=== PATIENT | male | born 1985 | race Two or more races ===

== ENCOUNTER 2023-10-19 16:01 | Emergency (ER) | payer SELFPAY ==
[2023-10-19 16:06] VITALS: BP 104/72
--- NOTE | 2023-10-19 16:56 | ED.GENMED ---
History of Present Illness
<Valarie Manriquez PA-C - Last Filed: 10/19/23 18:09>
General
Chief Complaint: Skin Problem
Source: patient
Exam Limitations: none
Time Seen by Provider: 10/19/23 16:27
Nursing documentation reviewed up to this point in time: agreed with
Travel History
Have you had any contact with someone who has COVID-19?: No
Do you have any symptoms of coronavirus? Fever > 100 degrees, chills, cough, shortness of breath, sore throat, loss of taste or smell, muscle aches, or headache?: No
History of Present Illness
History of Present Illness:
Patient is a 38 year old male presenting for evaluation of left hand injury sustained at work. 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 He washed and then came to the
emergency department. He endorses pain with flexion of second digit. He denies any numbness/tingling. He does report a rash in his genital region for which he requested male physician to evaluate.
Patient states his last tetanus shot was in 2017.
Past History
<Valarie Manriquez PA-C - Last Filed: 10/19/23 18:09>
Past History
ED Past Medical History: Other (Kidney stones)
ED Past Surgical History: Urological
Social History
Tobacco: Non-smoker
Alcohol: None
Phy Exam
<Valarie Manriquez PA-C - Last Filed: 10/19/23 18:09>
Physical Exam
Physical Exam:
General: Well appearing and non-toxic
Vitals: Vital signs stable, afebrile
HEENT: protecting airway
Neck: appears supple
CV: No evidence of cyanosis
Resp: No accessory muscle use
Abd: Non-distended
Extremities: Approximately 2 cm linear laceration on left palm, no evidence of tendon involvement, left hand neurovascular intact
Neuro: alert and oriented, grossly
Psych: Normal affect
Skin: 2 cm linear laceration of left palm
Course
<Valarie Manriquez PA-C - Last Filed: 10/19/23 18:09>
Orders/Labs/Results
Orders:
Orders
10/19/23 17:05
Tetanus/Diphth/Acelpertussis [Adacel] 0.5 ml IM .ONCE ONE
Vital Signs
Initial and Last Documented VS:
Initial Vital Signs
Temp Pulse Resp BP Pulse Ox
98.5 F 67 18 104/72 99
10/19/23 16:06 10/19/23 16:06 10/19/23 16:06 10/19/23 16:06 10/19/23 16:06
Last Documented Vital Signs
Temp Pulse Resp BP Pulse Ox
98.5 F 67 18 104/72 99
10/19/23 16:06 10/19/23 16:06 10/19/23 16:06 10/19/23 16:06 10/19/23 16:06
<Des Mccray MD - Last Filed: 10/19/23 17:13>
Orders/Labs/Results
Orders:
Orders
10/19/23 17:05
Tetanus/Diphth/Acelpertussis [Adacel] 0.5 ml IM .ONCE ONE
Vital Signs
Initial and Last Documented VS:
Initial Vital Signs
Temp Pulse Resp BP Pulse Ox
98.5 F 67 18 104/72 99
10/19/23 16:06 10/19/23 16:06 10/19/23 16:06 10/19/23 16:06 10/19/23 16:06
Last Documented Vital Signs
Temp Pulse Resp BP Pulse Ox
98.5 F 67 18 104/72 99
10/19/23 16:06 10/19/23 16:06 10/19/23 16:06 10/19/23 16:06 10/19/23 16:06
Procedures
<Valarie Manriquez PA-C - Last Filed: 10/19/23 18:09>
Laceration Closure
Left palm:
Status of Wound: clean
Size of Wound in cm: 2
Description of Wound Edges: sharp
Preparation: cleaned with saline
Anesthesia: 1% Lidocaine
Revision/Debridement: routine- no revision
Wound exploration: explored to base- no FB
Type of Closure: interrupted sutures
Skin Closure Material: 5-0 nylon
Number of sutures: 4
<Valarie Manriquez PA-C - Last Filed: 10/19/23 18:09>
MDM/Problems Addressed
Differential Diagnosis Includes:
laceration, gential ar
MDM/Problems Addressed:
Patient is a 38-year-old male presenting for evaluation of left hand injury that occurred at work about 3 hours ago. 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 Bleeding is controlled. He denies any numbness or tingling
of left hand. He denies any weakness in left hand. His vital signs are acceptable, afebrile. Physical exam as documented above. He does have a 2 cm linear laceration on left palm at base of second digit. Left hand is neurovascularly intact
without any sign of tendon involvement. Will update Tdap. Will irrigate thoroughly, closed with sutures.
He did request a male physician to evaluate a rash in his groin. Discussed male physician following�patient has genital warts. Will have him follow-up with primary care clinic.
Patient stable for discharge with close return precautions, wound care instructions, suture removal in 1 week. Thorough discussion with patient regarding wound care. Patient is comfortable this plan. All questions answered.
Chronic conditions affecting care:
N/A
Acute Exacerbation and/or Progression of Chronic Illness:
N/A
<Valarie Manriquez PA-C - Last Filed: 10/19/23 18:09>
*Pulse Oximetry
Patient hypoxic: no
*Electric Meter Installer Helper Interpretation
Rate: Electric Meter Installer Helper- N/A
*Critical Care Note
Total Time (30-74mins, 75-104mins- exclusive of procedures): Not Applicable
ED Attending Note
<Valarie Manriquez PA-C - Last Filed: 10/19/23 18:09>
-
Portions of this chart may have been created with voice recognition software.� Occasional wrong word or��sound alike� substitutions may have occurred due to the inherent limitations of voice recognition software.
<Des Mccray MD - Last Filed: 10/19/23 17:13>
ED Attending Note
Patient seen and examined by attending physician: Yes
ED Attending Note:
HPI: 38-year-old male presents to the emergency room for evaluation of a finger laceration. He is also requesting that we evaluate him for 'spots' in his genital region that he has noticed over the past 2 years. Regarding his primary presenting
complaint�he reports he was cutting with a knife earlier and lacerated his left index finger/palm. Unsure of last tetanus. No other injuries. As far as the genital complaints�he says that about 2 years ago he noticed a spot on his penis and that
over the past 2 years he has noticed a few other spots popped up. He says he is not sure what they are and asked that we check them out. They are not painful. No drainage. No urinary symptoms. He says that he is no longer sexually active.
ROS: Positive for laceration
Physical exam:
General: Awake, alert, oriented x3; no acute distress
Head: Normocephalic, atraumatic
Eyes: Conjunctiva normal
Throat: Airway intact, handling secretions
Neck: Trachea midline, supple without meningismus
Lungs: Breathing comfortably no distress
Heart: Regular rate
: Patient has scattered genital warts
Neuro: No gross deficits
Skin: Patient has small laceration left palm extending to the index finger approximately 2 cm, no exposed tendon, good strength in all digits
Differential diagnosis: Finger laceration; patient is genital warts as well
Medical decision makin-year-old male presents for evaluation of finger laceration primarily�exam as above, no exposed tendon or signs suggestive of occult tendon injury; will irrigate and repair with stitches, update tetanus. He also requests
that we evaluate some 'spots' in his genital region that he has noticed over the past 2 years. He appears to have genital warts/HPV. Advised to inform any sexual partners�he says that he is single and not sexually active. Will refer to urology
through and [facility] as needed but otherwise follow-up with his primary physician.
Chronic conditions affecting care: N/A
Acute exacerbation or progression of chronic illness: N/A
History source: Patient
Data reviewed: N/A
Medications/testing considered: N/A
Social determinants of health: N/A
Discussion with other providers: N/A
Discharge Plan
Departure
Patient Disposition: Home (Routine Discharge)
Date of Disposition: 10/19/23
Time of Disposition: 17:49
Patient with high blood pressure during this ER visit?: No
Discharge Problem:
Hand laceration, Genital warts
Instructions: Anogenital Warts (DC), Laceration Repair With Stitches ED
Prescriptions:
No Action
diclofenac potassium 50 mg tablet
50 mg PO BID PRN (Reason: pain) Qty: 20 0RF
Referrals:
[facility]Outside] - Call in 1-3 days for appt (Call to schedule follow up as we discussed. )
NONE,* [Family Provider] -
Activity Restrictions/Additional Instructions:
YOU MUST HAVE YOUR STITCHED REMOVED IN 1 WEEK. YOU CAN EITHER RETURN HERE TO THE ED, GO TO URGENT CARE, OR SEE YOUR PRIMARY DOCTOR TO HAVE THEM REMOVED. PLEASE RETURN TO THE ED IMMEDIATELY IF YOU NOTICE ANY SIGNS OF INFECTION.
Thank you for visiting the Emergency Department at [facility].
1. Please schedule a follow up appointment as directed. Call first thing tomorrow morning to make an appointment.
2. If indicated, please take your medications as instructed and indicated on discharge paperwork.
3. If any of your symptoms do not improve, or persist, or become more severe within 6-12 hours, please return to the emergency department for further care.
4. Please return to the emergency department if you develop a headache, neck pain/stiffness, fever greater than 100.4F, chest pain, shortness of breath, persistent nausea, vomiting, slurred speech, difficulty walking, numbness/tingling, weakness,
signs of infection or any other symptoms that are worrisome to you.
Please call [phone] if you have any questions.
Interventions
Interventions:
*Risk Screen - Suicide Last Done: 10/19/23 16:06
*General Assessment Last Done: 10/19/23 16:06
*Neglect/Abuse Screening Last Done: 10/19/23 16:06
*Nursing Disposition Last Done: 10/19/23 17:53
ED-Skin Assessment Last Done: 10/19/23 17:35
Discharge Date and Time
Discharge Date/Time: 10/19/23 17:53
[2023-10-19] MEDS: ADACEL 0.5 ML IM (17:23)
== END 2023-10-19 17:53 | disposition home or self-care (01) ==
LOC: EMR 16:01
PROVIDERS: EMERGENCY PHYSICIAN Emergency Medicine
DX: S61.412A Laceration without foreign body of left hand, initial encounter (principal); W26.0XXA Contact with knife, initial encounter; Y99.0 Civilian activity done for income or pay; Z87.442 Personal history of urinary calculi; Z23 Encounter for immunization
CPT/HCPCS: 99282; 12001; 90471; 90715